=== PATIENT | female | born 1985 | race African-American/Black ===

== ENCOUNTER 2018-12-04 11:41 | Emergency (ER) | payer OTHER ==
--- NOTE | 2018-12-04 12:15 | ED Physician Documentation ---
History of Present Illness - Stated complaint Stated Complaint: CHEST SPASM/LT SHOULDER SPASM - Chief complaint Chief Complaint: General - Additonal information Additional information: This is a 33-year-old female who presents with pain/spasming in her back that began 2 days ago. Patient states that the pain developed in the absence of any known trauma or straining event, she describes it as a sharp spasming in the muscle of her left back just to the midline of her scapula. It is worse with certain movements such as twisting, and with pressing on the area. She took some Tylenol last night which did not help much. She denies any leg swelling, hemoptysis, shortness of breath, history of blood clots, travel, taking estrogen-containing medications. No history of cardiac problems. She denies lightheadedness or syncope. Review of Systems Constitutional: denies: Fever Cardiac: reports: Chest pain / pressure Respiratory: denies: Hemoptysis GI: denies: Abdominal Pain Skin: denies: Rash Musculoskeletal: reports: Back pain Neurologic: denies: Syncope Immunocompromised: denies: Immunocompromised PD PAST MEDICAL HISTORY - Past Medical History Past Medical History: No Neuro: None - Past Surgical History Past Surgical History: Yes /[employer]: Dilation and currettage - Present Medications Home Medications: Ambulatory Orders Medication Instructions Recorded Confirmed Cyclobenzaprine [Flexeril] 10 mg PO TID PRN #20 tablet 12/04/18 raNITIdine [Zantac] 150 mg PO DAILY 12/04/18 12/04/18 - Allergies Allergies/Adverse Reactions: Allergies Allergy/AdvReac Type Severity Reaction Status Date / Time No Known Drug Allergies Allergy Verified 12/04/18 11:59 - Social History Does the pt smoke?: No Smoking Status: Never smoker Does the pt drink ETOH?: No Does the pt have substance abuse?: No - Immunizations Immunizations are current?: Yes PD ED PE NORMAL - Vitals Vital signs reviewed: Yes - General General: Alert and oriented X 3, No acute distress - HEENT HEENT: PERRL - Neck Neck: Supple, no meningeal sign - Cardiac Cardiac: RRR, No murmur - Respiratory Respiratory: No respiratory distress, Clear bilaterally - Abdomen Abdomen: Soft, Non tender, Non distended - Back Back: Other (Tenderness palpation of the left thoracic paraspinous muscle at the level of T5.) - Derm Derm: Warm and dry - Extremities Extremities: No deformity - Neuro Neuro: Alert and oriented X 3 - Psych Psych: Normal mood, Normal affect Results - Vitals Vitals: Vital Signs - 24 hr 12/04/18 12/04/18 12/04/18 11:56 11:59 13:59 Temperature 36 C L Heart Rate 92 92 73 Respiratory 18 18 15 Rate Blood Pressure 131/95 H 131/95 H 124/86 H O2 Saturation 99 99 100 12/04/18 14:58 Temperature Heart Rate 80 Respiratory 21 Rate Blood Pressure 128/70 O2 Saturation 100 Oxygen O2 Source Room air - EKG (time done) 12:01 Other comments: Other comments (Rhythm sinus, axis normal, there is no ST segment elevation or depression, no T wave inversions. Intervals within normal limits) - Rads (name of study) CXR Radiology: Other (No acute cardiopulmonary abnormality) PD MEDICAL DECISION MAKING - ED course Complexity details: considered differential (Musculoskeletal pain, ACS, PE, pneumothorax, pneumonia) ED course: On exam patient is well appearing and has reproducible pain the the L thoracic paraspinous muscles. EKG shows no signs of ischemia or dysrhythmia. Additionally, she has very few cardiac risk factors and the history of her pain makes cardiac cause exceedingly unlikely. CXR shows no acute abnormality. Pt is low risk by Well's and negative by PERC criteria for PE, no further work-up indicated for PE at this time. I explained to her that I am unsure the cause of her pain, though I have a suspicion it is musculoskeletal. Supportive care, return precautions, and PCP follow up discussed and patient was discharged home. Departure - Departure Disposition: 01 Home, Self Care Clinical Impression: Back pain Qualifiers: Back pain location: thoracic back pain Chronicity: acute Back pain laterality: left Qualified Code(s): M54.6 - Pain in thoracic spine Condition: Good Follow-Up: Your,PCP [Other] - Within 1 week Prescriptions: Cyclobenzaprine [Flexeril] 10 mg PO TID PRN #20 tablet PRN Reason: Spasms Comments: You were seen today for\chest pain. Your EKG looks reassuring, I do not see signs of abnormalities on your chest x-ray. This may be some inflammation/strain of your musculature of your back/posterior chest. If you develop blood in your sputum, shortness of breath, leg swelling, worsening pain, or other concerning symptoms please return to the emergency department. Otherwise please follow-up with your primary care provider Discharge Date/Time: 12/04/18 15:13
[2018-12-04] MEDS ORDERED: ACETAMINOPHEN 325 MG TABLET PO STA (12:25)
--- NOTE | 2018-12-04 13:09 | XRAY Report ---
Reason: L sided chest pain Procedure Date: 12/04/2018 Accession Number: [id number] / [id number] Procedure: XR - Chest 2 View X-Ray CPT Code: 75788 FULL RESULT: EXAM: CHEST RADIOGRAPHY EXAM DATE: 12/04/2018 12:51 PM. CLINICAL HISTORY: L sided chest pain. COMPARISON: None. TECHNIQUE: 2 views. FINDINGS: Lungs/Pleura: No focal opacities evident. No pleural effusion. No pneumothorax. Normal volumes. Mediastinum: Heart size is normal. Aorta is mildly tortuous. Other: No acute osseous abnormalities. Slight dextroscoliosis of the mid and lower thoracic spine. IMPRESSION: 1. No acute disease in the chest. [facility]
[2018-12-04] MEDS ORDERED: LIDOCAINE 1% 2 ML VIAL SUBQ STA (14:32)
[2018-12-04 14:58] VITALS: BP 128/70
== END 2018-12-04 15:13 | disposition home or self-care (01) ==
LOC: ED 11:41
DX: M54.6 Pain in thoracic spine (principal)
CPT/HCPCS: 71046; 93005; 99283; 99284; A9270